=== PATIENT | female | born 1965 | race Two or more races ===

== ENCOUNTER 2019-07-10 16:43 | Emergency (ER) | payer OTHER ==
[~2019-07-10] VITALS: Ht 165.1 cm; Wt 79.4 kg
[2019-07-10 16:48] VITALS: BP 171/105
--- NOTE | 2019-07-10 16:55 | NUR ---
OTIS VAUGHN AT BEDSIDE FOR EVAL.
[2019-07-10] MEDS ORDERED: ACETAMINOPHEN 325 MG TABLET PO ONE (17:00)
[2019-07-10] MEDS ORDERED: ACETAMINOPHEN ES 500 MG TABLET ONE (17:17)
--- NOTE | 2019-07-10 17:20 | NUR ---
X-RAY TECH AT BEDSIDE.
== END 2019-07-10 18:27 | disposition home or self-care (01) ==
LOC: ER 16:43
DX: S52.591A Other fractures of lower end of right radius, initial encounter for closed fracture (principal); E03.9 Hypothyroidism, unspecified; V00.131A Fall from skateboard, initial encounter; Y93.51 Activity, roller skating (inline) and skateboarding; Y92.89 Other specified places as the place of occurrence of the external cause; Y99.8 Other external cause status
CPT/HCPCS: 73110

== ENCOUNTER 2020-08-04 16:02 | Emergency (ER) | payer OTHER ==
[~2020-08-04] VITALS: Ht 165.1 cm; Wt 86.2 kg
--- NOTE | 2020-08-04 16:20 | NUR ---
PT BIB SELF REFERRED HERE BY HER URGENT CARE. PT REPORTS THAT SHE INITIALLY WENT TO HER URGENT CARE BECAUSE OF HER L PINKY TOE BECAUSE IT HURTS AND WAS TENDER TO TOUCH /10, THEN WHEN THEY CHECKED HER BP AT THE URGENT CARE, SYSTOLIC WAS IN THE 200s and DIASTOLIC WAS IN 100s. UPON ARRIVAL TO THE ER PTS BP WAS 208/113 HR 98. DENIES CHEST PAIN, HEADACHE AND DIZZINESS. VS CHECKED. AWAITING MD TRONCOSO.
[2020-08-04] MEDS ORDERED: ACETAMINOPHEN 325 MG TABLET PO ONE (17:00)
[2020-08-04 17:06] LABS: BASOPHILS # (AUTO) 0.1 /CMM (0.0-0.2); BASOPHILS % (AUTO) 0.8 % (0.0-2.0); EOSINOPHILS % (AUTO) 1.6 % (0.0-6.0); HEMATOCRIT 43 % (33-45); HEMOGLOBIN 14.3 g/dL (11.5-14.8); LYMPHOCYTES # (AUTO) 1.4 /CMM (0.8-4.8); LYMPHOCYTES % (AUTO) 19.8 % (20.0-44.0); MEAN CORPUSCULAR HGB CONC 34 g/dl (31.0-36.0); MEAN CORPUSCULAR VOLUME 96 fL (82-100); MONOCYTES # (AUTO) 0.5 /CMM (0.1-1.30); MONOCYTES % (AUTO) 7.1 % (2.0-12.0); NEUTROPHILS # (AUTO) 4.9 /CMM (1.8-8.9); NEUTROPHILS % (AUTO) 70.7 % (43.0-81.0); PLATELET COUNT (AUTO) 271 /CMM (150-450); RED BLOOD CELL COUNT(AUTO) 4.42 MIL/uL (4.0-5.2)
[2020-08-04] MEDS ORDERED: ACETAMINOPHEN ES 500 MG TABLET ONE (17:07)
[2020-08-04 17:16] LABS: CALCIUM, SERUM 9.1 mg/dL (8.5-10.1); CARBON DIOXIDE 26 mmol/L (21-32); CHLORIDE 102 mmol/L (98-107); CREATININE 0.8 mg/dL (0.6-1.3); GLUCOSE 98 mg/dL (74-106); POTASSIUM 3.7 mmol/L (3.5-5.1); SODIUM SERUM 138 mmol/L (136-145); UREA NITROGEN, BLOOD 16 mg/dL (7-18)
[2020-08-04 17:41] LABS: APPEARANCE,URINE CLEAR (CLEAR); BILIRUBIN,URINE NEGATIVE (NEGATIVE); BLOOD, URINE NEGATIVE Ery/uL (NEGATIVE); COLOR,URINE YELLOW (YELLOW); KETONES,URINE NEGATIVE (NEGATIVE); LEUKOCYTE ESTERASE ,URINE TRACE (NEGATIVE); NITRITE, URINE NEGATIVE (NEGATIVE); PH,URINE 6.5 (5.0-8.0); PROTEIN,URINE NEGATIVE (NEGATIVE); UGLUCOSE NEGATIVE (NEGATIVE); UROBILINOGEN,URINE 0.2 EU/dL (0.2)
[2020-08-04 18:02] LABS: BACTERIA,URINE Few /HPF (None Seen); RBC,URINE 0-2 /HPF (0-2); SQUAMOUS EPITHELIAL CELL,UR Few /HPF (None Seen); WBC,URINE 0-2 /HPF (0-3)
--- NOTE | 2020-08-04 18:20 | NUR ---
PTS BP IS NOW 160/102 HR 73. PT STILL ASYMPTOMATIC, DENIES ANY DIZZINESS, CHEST PAIN OR SOB. PER MD, SHE WILL NOT GIVE ANY BP MEDS SINCE PT REMAINS TO BE ASYMPTOMATIC.
--- NOTE | 2020-08-04 18:39 | NUR ---
Patient discharged to home in stable condition. Written and verbal after care instructions given. Patient verbalizes understanding of instruction. IV removed. Catheter intact and site benign. Pressure and 4x4 applied to site. No bleeding noted.
[2020-08-04 18:43] VITALS: BP 160/102
== END 2020-08-04 18:58 | disposition home or self-care (01) ==
LOC: ER 16:02
DX: S92.532A Displaced fracture of distal phalanx of left lesser toe(s), initial encounter for closed fracture (principal); I16.0 Hypertensive urgency; E03.9 Hypothyroidism, unspecified; Z98.890 Other specified postprocedural states; Z87.891 Personal history of nicotine dependence; X58.XXXA Exposure to other specified factors, initial encounter; Y93.89 Activity, other specified; Y92.89 Other specified places as the place of occurrence of the external cause; Y99.8 Other external cause status
CPT/HCPCS: 36415; 71045-TC; 73630-TC; 80048-TC; 81000-TC; 84484-TC; 84703-TC; 85025-TC